=== PATIENT | female | born 1955 | race Caucasian/White ===

== ENCOUNTER 2018-03-25 05:47 | Outpatient (CLI) | payer BC, MEDICARE ==
[~2018-03-25] VITALS: Ht 165.1 cm; Wt 86.2 kg
[2018-03-25] MEDS ORDERED: METO-387 PO (10:37)
[2018-03-25] MEDS ORDERED: ZOLP10TA5 PO (10:37)
[2018-03-25] MEDS ORDERED: GABA-488 PO (10:37)
[2018-03-25] MEDS ORDERED: CELE200C PO (10:37)
[2018-03-25] MEDS ORDERED: CYCL5TAB PO (10:37)
[2018-03-25] MEDS ORDERED: OMEP20CA12 PO (10:37)
[2018-03-25] MEDS ORDERED: HYDR-3812 PO (10:37)
[2018-03-25] MEDS ORDERED: ASPI-586 PO (10:37)
[2018-03-25] MEDS ORDERED: LOSA100T3 PO (10:37)
[2018-03-25] MEDS ORDERED: DIAZ5TAB3 PO (10:37)
[2018-03-25] MEDS ORDERED: SIMV20TA3 PO (10:37)
[2018-03-25] MEDS ORDERED: SERT50TA9 PO (10:37)
[2018-03-25] MEDS ORDERED: HYDR12.56 PO (10:37)
== END 2018-03-25 10:42 | disposition home or self-care (01) ==
LOC: PREOP 05:47
PROVIDERS: ATTEND Orthopaedic Surgery Orthopaedic Surgery of the Spine
DX: Z01.818 Encounter for other preprocedural examination (principal)

== ENCOUNTER 2018-04-03 05:58 | Day surgery (SDC) | payer BC, MEDICARE ==
[~2018-04-03] VITALS: Ht 165.1 cm; Wt 86.2 kg
[~2018-04-03 05:58] MED LIST: ASPI-586 PO; CELE200C PO; CYCL5TAB PO; DIAZ5TAB3 PO; GABA-488 PO; HYDR-3812 PO; HYDR12.56 PO; LOSA100T3 PO; METO-387 PO; OMEP20CA12 PO; SERT50TA9 PO; SIMV20TA3 PO; ZOLP10TA5 PO
[2018-04-03] MEDS ORDERED: LACTATED RINGERS 1,000 ML IV PRN (06:09)
[2018-04-03] MEDS ORDERED: ceFAZolin 2 GM IV Premixed 50 ML IV ONE (06:15)
[2018-04-03] MEDS ORDERED: ONDANSETRON 4 MG/2 ML (SDV) Z0FRAN IV ONE (06:15)
[2018-04-03] MEDS ORDERED: SCOPOLAMINE 1.5 MG (TRANSDERM-SCOP) PATCH TOP ONE (06:15)
[2018-04-03] MEDS ORDERED: FAMOTIDINE 20MG/2ML IV (PEPCID) IV ONE (06:15)
[2018-04-03] MEDS ORDERED: LIDOCAINE PF 2% 2 ML (XYLOCAINE) VIAL ONE (06:43)
[2018-04-03] MEDS ORDERED: SEVOFLURANE (ULTANE) 15 ML INHAL SOLN ONE ×3 (06:43→08:46)
[2018-04-03] MEDS ORDERED: DEXAMETHASONE 10 MG/ML (DECADRON) 1 ML VIAL ONE (06:43)
[2018-04-03] MEDS ORDERED: MIDAZOLAM 2 MG/2 ML (VERSED) VIAL ONE (06:43)
[2018-04-03] MEDS ORDERED: proPOfol 200 MG/20 ML (DIPRIVAN) VIAL IV ONE ×2 (06:43→08:26)
[2018-04-03] MEDS ORDERED: ROCURONIUM 10 MG/ML 5 ML SYRINGE IV ONE ×2 (06:43→08:26)
[2018-04-03] MEDS ORDERED: fentaNYL INJECTION 100 MCG/2 ML AMP ONE ×2 (06:43→08:07)
[2018-04-03] MEDS: LACTATED RINGERS 1,000 ML IV PRN ×2 (06:45→10:21)
[2018-04-03 07:00] VITALS: BP 129/71
[2018-04-03] MEDS ORDERED: CATHETER FLUSH 10 ML SYR IV PRN (07:00)
[2018-04-03] MEDS ORDERED: GENTAMICIN 40 MG/ML 2 ML INJ SDV ONE (07:03)
[2018-04-03] MEDS ORDERED: BUP/EPI 0.5% 1:200,000 (SENSORCAINE) 30 ML VIAL ONE (07:03)
[2018-04-03] MEDS ORDERED: VANCOMYCIN 1000 MG/VIAL ONE (07:03)
[2018-04-03] MEDS ORDERED: GLYCOPYRROLATE 0.2 MG/ML (ROBINUL) 2 ML VIAL ONE (07:08)
[2018-04-03] MEDS ORDERED: SUCCINYLCHOLINE INJ 100 MG/5 ML SYR ONE (07:08)
[2018-04-03] MEDS ORDERED: PROPOFOL INJECTION 50 ML IV ONE (08:45)
--- NOTE | 2018-04-03 08:48 | Progress Note-Post Operative ---
Post-Operative Progess Note Surgeon (s)/Territory Sales Representative (s) Surgeon LOREN REDDY MD Territory Sales Representative: KARRIE Phelps Pre-Operative Diagnosis lumbago radicylopathy Post-Operative Diagnosis Same Procedure & Operative Findings Date of Procedure 04/03/18 Procedure Performed/Findings Placement of Permanent SCS, via laminectomy with paddle lead, battery and complex programing. Anesthesia Type GETA Estimated Blood Loss Estimated blood loss (mL): Min Specimens/Packing Specimens Removed None LOREN REDDY MD Apr 03, 2018 8:48 am
[2018-04-03] MEDS ORDERED: HYDROmorphone 2 MG/ML VIAL (DILAUDID) IV ONE (09:15)
[2018-04-03] MEDS ORDERED: fentaNYL INJECTION 100 MCG/2 ML AMP IVP ONE (09:15)
[2018-04-03] MEDS ORDERED: ONDANSETRON 4 MG/2 ML (SDV) Z0FRAN IVP PRN (09:15)
--- NOTE | 2018-04-03 09:31 | Anesthesia-General Post-Op ---
General Patient Condition Mental Status/LOC: Same as Preop Cardiovascular: Satisfactory Nausea/Vomiting: Absent Respiratory: Satisfactory Pain: Controlled Complications: Absent Post Op Complications Complications None Follow Up Care/Instructions Patient Instructions None needed. Anesthesia/Patient Condition Patient Condition Patient is doing well, no complaints, stable vital signs, no apparent adverse anesthesia problems. No complications reported per nursing. RAQUEL HALL CRNA Apr 03, 2018 09:30
[2018-04-03 10:20] VITALS: BP 139/75
[2018-04-03 10:50] VITALS: BP 131/60
[2018-04-03 11:20] VITALS: BP 131/66
[2018-04-03 11:50] VITALS: BP 131/66
--- NOTE | 2018-04-03 12:09 | OPERATIVE REPORT ---
DATE OF SERVICE: 04/03/2018 PREOPERATIVE DIAGNOSIS: Chronic lumbago and lumbar radiculopathy. POSTOPERATIVE DIAGNOSIS: Chronic lumbago and lumbar radiculopathy. PROCEDURES PERFORMED: 1. T9-10 level laminectomy for placement of T7-8 level paddle electrode for spinal cord stimulation. 2. Left-sided low back impulse generating and battery for spinal cord stimulation. 3. Complex programming of internal spinal cord stimulator. DATE AND TIME OF SURGERY: Please see anesthesia record. SURGEON: Loren Blandon MD. [place] ENGINEER: ALEM Phelps. ROLE OF STAFF PSYCHIATRIST: Aid in retraction of the procedure, aid in implantation, instrumentation and wound closure. ANESTHESIA: General endotracheal. ESTIMATED BLOOD LOSS: Minimal. INTRAVENOUS FLUIDS: Please see anesthesia record. ANTIBIOTICS: Ancef. COMPLICATIONS: None. SPECIMENS: None. IMPLANTS USED: [employer] MRI compatible battery and Penta lead. INDICATIONS FOR PROCEDURE: The patient is a 62-year-old female with severe back and leg pain, positive trial and desires permanent placement. NEUROMONITORING: Standard intraoperative neuro monitoring carried out by means of real time continuous high quality bidirectional mode, audio and visual communication to both the application technician and surgeon by Dr. Gross. SSEPs, EMGs, and TOFs were carried out continuously throughout the procedure and stable. DESCRIPTION OF PROCEDURE: The patient was taken to the preoperative holding area and brought back to the operative suite. After adequate induction of general anesthesia, preoperative antibiotics, carefully turned prone on Zach table, careful padding to all extremities, sterilely prepped and draped posterior thoracic and lumbar spine. Localization of the appropriate levels were confirmed and then T9-10 level laminotomy was created. Dural separator was utilized and the paddle electrode was placed into a midline position over T7-8 where she had her best pain relief was seen during trial and was confirmed to be in satisfactory position. Then, it was anchored with nonabsorbable sutures at the lamina level and then the fascia was closed and then it was anchored again at the fascial level and strain relief loops were created. It was tunneled into the left-sided battery pocket over her left posterior flank region and it was connected to the battery. System was functioning well, is integrated and confirmation of both function in the right and left sides and programing to assure its adequacy and function was achieved. The system was then turned off for later utilization when the patient is fully awake. Wounds were irrigated, closed in layers. Final imaging was obtained and the patient was transferred to the recovery room in stable condition and tolerated the procedure well. Stable spinal monitoring. Job ID: [id number] DocumentID: [id number] Dictated Date: 04/03/2018 08:51:02 Drying Machine Operator Date: 04/03/2018 12:08:39 Dictated By: LOREN BLANDON MD [facility]
--- NOTE | 2018-04-03 14:01 | Diagnostic Imaging Report ---
Indication: Back pain, spinal cord stimulator placement Intraoperative fluoroscopy used during stimulator placement. The leads are visualized over the lower thoracic spine with superior tip at the level of T8-T9. 6 seconds of fluoroscopy time was used in surgery. Impression: Intraoperative fluoroscopy used for spinal cord stimulator placement, as above. Dictated by: Dictated on workstation # [id number]
== END 2018-04-03 11:50 | disposition home or self-care (01) ==
LOC: SDC 05:58
PROVIDERS: ATTEND Orthopaedic Surgery Orthopaedic Surgery of the Spine
DX: M54.16 Radiculopathy, lumbar region (principal); Z11.2 Encounter for screening for other bacterial diseases; I10 Essential (primary) hypertension; F41.9 Anxiety disorder, unspecified; G47.33 Obstructive sleep apnea (adult) (pediatric); G62.9 Polyneuropathy, unspecified; K21.9 Gastro-esophageal reflux disease without esophagitis; Z96.653 Presence of artificial knee joint, bilateral; Z79.899 Other long term (current) drug therapy; Z79.82 Long term (current) use of aspirin
CPT/HCPCS: 87081